=== PATIENT | male | born 1990 | race American Indian/Alaskan Native ===

== ENCOUNTER 2017-10-01 16:38 | Emergency (ER) | payer MEDICAID ==
[2017-10-01 16:46] VITALS: BMI 25.0
[2017-10-01 16:49] VITALS: RESP 18; TEMP 98.5
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
[2017-10-01] MEDS ORDERED: Amoxicillin-Clav 875-125 mg Tab PO STA (18:58)
[2017-10-01] MEDS ORDERED: TDAP Vaccine 0.5 mL Syr IM ONE (18:59)
[2017-10-01 19:13] VITALS: BP 119/78; PULSE 75; O2SAT 100
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
== END 2017-10-01 19:33 | disposition home or self-care (01) ==
LOC: ED 16:38
DX: Z04.8 Encounter for examination and observation for other specified reasons (principal); Y08.89XA Assault by other specified means, initial encounter; Y92.89 Other specified places as the place of occurrence of the external cause; Z23 Encounter for immunization

== ENCOUNTER 2018-02-16 00:51 | Emergency (ER) | payer MEDICAID ==
[2018-02-16 00:52] VITALS: BMI 25.0
[2018-02-16 01:42] VITALS: PULSE 72; RESP 18; TEMP 98.1; O2SAT 99
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
== END 2018-02-16 02:14 | disposition home or self-care (01) ==
LOC: ED 00:51
DX: D17.0 Benign lipomatous neoplasm of skin and subcutaneous tissue of head, face and neck (principal)